=== PATIENT | male | born 1955 | race Caucasian/White ===

== ENCOUNTER 2017-01-06 13:11 | Emergency (ER) | payer BC ==
[2017-01-06 13:34] VITALS: BP 128/87
--- NOTE | 2017-01-06 13:41 | UC ---
Skin Complaint HPI - HPI Summary HPI Summary: The patient comes in today for: 1. Rash, tick bite: Onset: Today, 2-3 hours ago. Palliative/provocative: Nothing makes his symptoms better or worse. Quality: Slightly tender. Region: Left axilla area. Severity: 0/10 Time: Constant. Associated symptoms: Fevers: None Chills: None. He was told by his nurse to have this checked out. He was told by his primary care provider to come to see us. Event: He went camping 3-4 days ago. 01/01 through 01/02. He does not know if he got the tick at that time, or from camping or the dog. * - History of Current Complaint Chief Complaint: [place] Time Seen by Provider: 01/06/17 13:34 Stated Complaint: SKIN COMPLAINT Hx Obtained From: Patient - Allergy/Home Medications Allergies/Adverse Reactions: Allergies Allergy/AdvReac Type Severity Reaction Status Date / Time No Known Allergies Allergy Verified 01/06/17 13:25 Home Medications: Home Medications Levothyroxine TAB* [Synthroid TAB*] 50 mcg PO 01/06/17 [History] Pravastatin (NF) [Pravachol (NF)] 1 tab DAILY 01/06/17 [History Confirmed ] Tadalafil [Cialis] 01/06/17 [History] Review of Systems Constitutional: Negative Skin: Rash Eyes: Negative ENT: Negative Respiratory: Negative Cardiovascular: Negative Gastrointestinal: Negative Genitourinary: Negative All Other Systems Reviewed And Are Negative: Yes PMH/Surg Hx/FS Hx/Imm Hx Previously Healthy: No - ED Endocrine History Of: Reports: Thyroid Disease Denies: Diabetes, Hyperthyroidism, Hypothyroidism, Dyslipidemia Cardiovascular History Of: Reports: Cardiac Disorders - "Slight murmur" since childhood. Denies: Hypertension, Pacemaker/ICD, Myocardial Infarction, Congestive Heart Failure, Atrial Fibrillation, Deep Vein Thrombosis, Bleeding Disorders Respiratory History Of: Denies: COPD, Asthma, Bronchitis, Pneumonia, Pulmonary Embolism GI/ History Of: Reports: Gastroesophageal Reflux - Omeprazole he gets from his doctor. Denies: Ulcer, Gastrointestinal Bleed, Gall Bladder Disease, Kidney Stones, Diverticulitis, Renal Disease, Urosepsis Neurological History Of: Denies: TIA, CVA, Dementia, Seizures, Migraine Psychological History Of: Denies: Anxiety, Depression, Bipolar Disorder, Schizophrenia, Post Traumatic Stress Disorder Cancer History Of: Denies: Lung Cancer, Colorectal Cancer, Breast Cancer, Prostate Cancer, Cervical Cancer Other History Of: Negative For: HIV, Hepatitis B, Hepatitis C, Anticoagulant Therapy - Surgical History Surgical History: Yes Surgery Procedure, Year, and Place: LEFT fibula- pins placed Nov 1985 - Family History Known Family History: Negative: Cardiac Disease, Hypertension - Social History Occupation: Employed Full-time Lives: With Family Alcohol Use: Rare Substance Use Type: None Smoking Status (MU): Never Smoked Tobacco - Immunization History Most Recent Influenza Vaccination: None Physical Exam Triage Information Reviewed: Yes Appearance: Well-Appearing, No Pain Distress, Well-Nourished Vital Signs: Initial Vital Signs Temp 98.5 F 01/06/17 13:27 Pulse 88 01/06/17 13:27 Resp 18 01/06/17 13:27 BP 128/87 01/06/17 13:27 Pulse Ox 95 01/06/17 13:27 Vital Signs Reviewed: Yes Eyes: Positive: Conjunctiva Clear. Negative: Discharge ENT: Positive: Hearing grossly normal. Negative: Pharyngeal erythema, Nasal congestion, Nasal drainage, TM bulging, TM dull, TM red, Tonsillar swelling, Tonsillar exudate Dental: Negative: Gross Decay/Caries @, Dental Fracture @ Neck: Positive: Supple, Nontender, No Lymphadenopathy. Negative: Nuchal Rigidity Respiratory: Positive: Chest non-tender, Lungs clear, No respiratory distress, No accessory muscle use. Negative: Crackles, Wheezing Cardiovascular: Positive: RRR, No Murmur Abdomen Description: Positive: Nontender, No Organomegaly, Soft. Negative: Distended, Guarding Musculoskeletal: Positive: Strength Intact, ROM Intact, No Edema Neurological: Positive: Alert, Muscle Tone Normal Psychological: Positive: Age Appropriate Behavior, Consolable Skin: Positive: rashes - He has an erythematous singular papular lesions of the left axilla area. There is no seen tick parts in the site nor any vesicles or pustules present. Course/Dx - Course Course Of Treatment: Patient states that he would like doxycycline prescribed similar to Lyme prophyactic dose. - Differential Diagnoses - Skin Complaint Differential Diagnoses: Cellulitis - Diagnoses Provider Diagnoses: Tick bite Discharge - Discharge Plan Condition: Stable Disposition: HOME Patient Education Materials: Tick Bite (ED), [place] Spotted Fever (ED) Additional Instructions: We don't have any patient information regarding Ehrlichiosis. Please follow up with your primary care provider in about a week to see how well you are doing. Please be seen sooner if you have any new problems.
== END 2017-01-06 14:30 | disposition home or self-care (01) ==
LOC: UCCORT 13:11
DX: S40.862A Insect bite (nonvenomous) of left upper arm, initial encounter (principal); W57.XXXA Bitten or stung by nonvenomous insect and other nonvenomous arthropods, initial encounter; Y93.9 Activity, unspecified; Y92.9 Unspecified place or not applicable; R21 Rash and other nonspecific skin eruption; E07.9 Disorder of thyroid, unspecified
CPT/HCPCS: 99212; G0463